=== PATIENT | male | born 1955 | race Caucasian/White ===

== ENCOUNTER 2016-11-14 15:04 | Emergency (ER) | payer OTHER ==
[~2016-11-14] VITALS: Wt 150.0 kg
[2016-11-14 17:20] LABS: ADD SCAN DIFF NO
--- NOTE | 2016-11-14 17:23 | ERA ---
ER Documentation Chief Complaint Date/Time DATE: 11/14/16 TIME: 17:19 Chief Complaint BILATERAL LOWER LEG SWELLING HPI This is a very pleasant 60-year-old male with a known history of CLL diagnosed in December 2009. 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 The patient had been placed on chemotherapy and his last dose of chemotherapy was in April 2014 which she received for 5 months. Indicates that in April 2015 he was placed on a oral chemotherapy called Ibrutanid however due to changes in his insurance he has not taken this medication since February 2016. The patient indicates that he has experienced edema of his bilateral lower extremity since his initial diagnosis of CLL in December 2015. However 2 weeks prior to arrival he stated he noticed that there appeared to be redness and warmth with associated tenderness of his bilateral lower extremities. He denies any weight loss. He has had no fever shaking or chills. He has known history of COPD and asthma and indicates he utilizes inhaler on a daily basis and does complain of mild dyspnea. He states however the dyspnea is not any different than his previous COPD exacerbations. He never required intubation in the past. He denies any chest pain or pressure that radiates to the neck arm back or jaw. He denies any shortness of breath at rest or exertion. The patient had taken a 7 day course of amoxicillin which he completed 48 hours ago for dental infection. The patient is scheduled for PET scan on November 23, 2015, next week. ROS All systems reviewed and are negative except as per history of present illness. Allergies Allergies: Coded Allergies: No Known Allergy (Unverified , 11/14/16) PMhx/Soc History of Surgery: Yes (SKIN CANCER LESIONS ) Anesthesia Reaction: No Hx Neurological Disorder: No Hx Respiratory Disorders: Yes (COPD) Hx Cardiac Disorders: No Hx Psychiatric Problems: No Hx Miscellaneous Medical Probl: Yes (CLL, ) Hx Alcohol Use: No Hx Substance Use: No Hx Tobacco Use: No Smoking Status: Former smoker Physical Exam Vitals Vital Signs Date Time Temp Pulse Resp B/P Pulse Ox O2 Delivery O2 Flow Rate FiO2 11/14/16 15:07 99.0 125 22 132/80 93 Physical Exam Constitutional:Well-developed. Well-nourished. HEENT:Normocephalic. Atraumatic.Pupils were equal round reactive to light. Moist mucous membranes.No tonsillar exudates. Neck: No nuchal rigidity. No lymphadenopathy. No posterior cervical spine tenderness or step-offs. Respiratory: Not using accessory muscles of respiration.Lungs were clear to auscultation bilaterally. No rhonchi. No rales. No wheezing. Cardiovascular: Regular rate regular rhythm.No murmurs. No rubs were appreciated.S1, S2 normal. Distal pulses are palpable 2+ bilaterally. GI: Abdomen was soft. Nontender. Non Distended. No pulsatile abdominal masses or bruits. No rebound. No guarding. Bowel sounds were present and normal. Muscle skeletal: Full range of motion of both the upper and lower extremities bilaterally.Normal muscle tone. 2+ pitting edema the bilateral lower extremities with bilateral calf tenderness and negative Homans sign Skin: No petechia, no purpura. No lesions on the palms or the soles of the feet. No maculopapular rash. Erythema extending over the distal two thirds of the anterior aspect of the bilateral lower extremities with surrounding warmth and tenderness. Pain not out of proportion to physical exam findings NEURO: Patient was alert, awake, orientated x3.No facial droop. Gait observed and normal with no ataxia.Speech had regular rate and rhythm. No focal neurological deficits. Result Diagram: 11/14/16 1705 11/14/16 1705 Results 24 hrs Laboratory Tests Test 11/14/16 17:05 11/14/16 19:40 Activated Partial Thromboplast Time 23.9Sec Alanine Aminotransferase (ALT/SGPT) 35IU/L Albumin 3.5g/dl Albumin/Globulin Ratio 1.59 Alkaline Phosphatase 92IU/L Amylase Level 69U/L Anion Gap 14 Aspartate Amino Transf (AST/SGOT) 35IU/L B-Type Natriuretic Peptide 49PG/ML Blood Urea Nitrogen 15mg/dl Calcium Level 9.8mg/dl Carbon Dioxide Level 29mmol/L Chloride Level 104mmol/L Creatinine 1.14mg/dl Direct Bilirubin 0.00mg/dl Eosinophils # 0.310^3/ul Eosinophils % 2.0% Globulin 2.20g/dl Glucose Level 118mg/dl Hematocrit 39.8% Hemoglobin 13.2g/dl INR International Normalized Ratio 1.00 Indirect Bilirubin 0.4mg/dl Lactic Acid Level 0.6mmol/L Lipase 267U/L Lymphocytes # 9.610^3/ul Lymphocytes % 62.0% Mean Corpuscular Hemoglobin 28.4pg Mean Corpuscular Hemoglobin Concent 33.2g/dl Mean Corpuscular Volume 85.6fl Mean Platelet Volume 11.2fl Monocytes # 2.010^3/ul Monocytes % 13.0% Neutrophils # 3.610^3/ul Neutrophils % 23.0% Platelet Count 12902^3/UL Potassium Level 4.0mmol/L Prothrombin Time 13.2Sec Prothrombin Time Ratio 1.0 Red Blood Count 4.6510^6/ul Red Cell Distribution Width 16.1% Sodium Level 143mmol/L Total Bilirubin 0.4mg/dl Total Protein 5.7g/dl Troponin I < 0.012ng/ml White Blood Count 15.510^3/ul Urine Bilirubin NEGATIVE Urine Clarity CLEAR Urine Color LT. YELLOW Urine Glucose NEGATIVE% Urine Hemoglobin NEGATIVE Urine Ketones TRACE Urine Leukocyte Esterase NEGATIVE Urine Nitrite NEGATIVE Urine Specific [place] 1.025 Urine Total Protein NEGATIVE Urine Urobilinogen 0.2 E.U./dL Urine pH 6.0 Current Medications Medications (Trade) Dose Ordered Sig/Isael Route PRN Reason Start Time Stop Time Status Last Admin Dose Admin Vancomycin HCl 250 ml @ 125 mls/hr ONCE STAT IVPB 11/14/16 18:45 11/14/16 20:44 Clindamycin HCl/ Dextrose (Cleocin 900 Mg/ D5W (Pmx)) 50 ml @ 50 mls/hr ONCE STAT IVPB 11/14/16 18:45 11/14/16 19:44 DC 11/14/16 19:55 Procedures/MDM The patient presented to the emergency department with a spreading erythematous superficial infection of the skin and subcutaneous tissues. My differential diagnosis included but was not limited to necrotizing fasciitis, lymphangitis, thrombophlebitis, deep vein thrombosis, allergic reaction, neoplasm, gout or abscess. Predisposing factors of the progressive spread of erythema, warmth, pain and tenderness was considered such as lymphedema, tinea pedis, open wounds, prior trauma or surgery, pre-existing skin lesion (furuncle), retained foreign body, injection drug use or vascular or immune compromise. The patient was placed on antibiotics to cover Staphylococcus aureus, including resistant strains such as community-acquired methicillin-resistant S. aureus. The patient was given intravenous vancomycin and clindamycin. I obtained a chest radiograph which showed no evidence of an infectious process such as pneumonia and no fluid overload to suggest pulmonary edema from the lower extremity peripheral edema the patient had been experiencing I obtained venous duplex ultrasound of the bilateral lower extremities which indicated no evidence of deep vein thrombosis. The patient had leukocytosis with white blood count of 15.5. 12 Lead EKG tracing ordered and reviewed by myself showed: Sinus tachycardia 112 bpm and no arrhythmia. NV interval normal. QRS duration normal. No ST segment elevation No ST segment depression. No changes consistent with acute ischemia. I explained to the patient that I felt he needed to be admitted due to his immunocompromise state and signs of bilateral lower extremity cellulitis for IV antibiotics. The patient however stated that he would prefer to be discharged home. He states he has good outpatient follow-up, as he is following up with his oncologist for a PET scan in roughly 1 week. The patient had no lactic acidosis or signs of sepsis at this time. He is refusing analgesic medication. I did provide a prescription for the patient which included clindamycin and Keflex for oral antibiotics. Again the patient was instructed that he can return to the emergency department at any time if there is worsening of his symptoms. The patient was very adamant that he did not want to be admitted to the hospital. The patient was discharged home in fair condition. They were instructed to return to the emergency department at any time if there was any worsening of their condition. The patient stated they would follow up with their PCP in the next 24-48 hours to initiate a suitable medication regimen under the care of their PCP as well as to allow their PCP to monitor any drug reactions. The patient was discharged home with prescriptions after they gave informed consent to the new medication. They were also fully informed by myself on the adverse effects and adverse drug interactions in order to provide adequate safeguards to prevent possible adverse reactions to medications. Departure Diagnosis: Primary Impression: Cellulitis Qualified Code: L03.119 - Cellulitis of lower extremity, unspecified laterality Additional Impression: Peripheral edema Condition: Fair RONI QUISPE Nov 14, 2016 17:23
[2016-11-14 17:25] LABS: ABNORMAL IP MESSAGE 1; HEMATOCRIT 39.8 % (42.0-52.0); HEMOGLOBIN 13.2 g/dl (14.0-18.0); MEAN CORPUSCULAR HEMOGLOBIN 28.4 pg (29.0-33.0); MEAN CORPUSCULAR HGB CONC 33.2 g/dl (32.0-37.0); MEAN CORPUSCULAR VOLUME 85.6 fl (82.0-101.0); MEAN PLATELET VOLUME 11.2 fl (7.4-10.4); PLATELET COUNT 117 10^3/UL (140-415); RED BLOOD COUNT 4.65 10^6/ul (4.70-6.10); RED CELL DISTRIBUTION WIDTH 16.1 % (11.5-14.5); WHITE BLOOD COUNT 15.5 10^3/ul (4.8-10.8)
[2016-11-14 17:35] LABS: PARTIAL THROMBOPLASTIN TIME 23.9 Sec (25.0-35.0); PROTIME 13.2 Sec (12.2-14.2)
[2016-11-14 17:38] LABS: ALBUMIN 3.5 g/dl (3.3-4.9)
[2016-11-14 17:40] LABS: CREATININE 1.14 mg/dl (0.61-1.24)
[2016-11-14 17:41] LABS: ALBUMIN/GLOBULIN RATIO 1.59; AMYLASE 69 U/L (11-123); BILIRUBIN,INDIRECT 0.4 mg/dl (0-1.1); BILIRUBIN,TOTAL 0.4 mg/dl (0.2-1.3); CALCIUM 9.8 mg/dl (8.4-10.2); TOTAL PROTEIN 5.7 g/dl (6.1-8.1)
[2016-11-14 17:52] LABS: EOSINOPHILS # 0.3 10^3/ul (0.0-0.5); LYMPHOCYTES # 9.6 10^3/ul (0.8-2.9); NEUTROPHIL # 3.6 10^3/ul (1.6-7.5)
[2016-11-14 18:15] LABS: TROPONIN-I < 0.012 ng/ml (0.00-0.12)
--- NOTE | 2016-11-14 18:15 | RADRPT ---
PROCEDURE: US Lower extremity Venous. CLINICAL INDICATION: Patient experiencing Chest Pain TECHNIQUE: Multiple sonographic images of the bilateral lower extremity deep venous system was obt ained utilizing grayscale, color-flow, compressive sonography and doppler imaging with augmentation. The images were reviewed on a PACS workstation. COMPARISON: None. FINDINGS: There is normal compressibility and flow within the bilateral common femoral, deep femoral, superfic ial femoral and popliteal veins. The deep veins the calf were incompletely visualized. Prominent bilateral inguinal lymph nodes are present. IMPRESSION: No sonographic evidence for deep venous thrombosis in the bilateral lower extremities. Prominent bilateral inguinal lymph nodes are present. Physician Marleny Date Time Electronically viewed and signed by Physician Marleny on 11/14/2016 18:15 ML/
[2016-11-14] MEDS ORDERED: CLINDAMYCIN 900 MG/D5W (PMX) 50 ML IVPB STA (18:45)
[2016-11-14] MEDS ORDERED: VANCOMYCIN 1 GM (PMX) 250 ML IVPB STA (18:45)
--- NOTE | 2016-11-14 18:49 | RADRPT ---
PROCEDURE: Chest x-ray CLINICAL INDICATION: Chest pain TECHNIQUE: Chest single view COMPARISON: None FINDINGS: The heart is normal in size. The pulmonary vessels are normal in caliber. The lungs are clear. Th e costophrenic angles are sharp. The visualized bony thorax is unremarkable. IMPRESSION: No acute cardiopulmonary disease. RPTAT: HH .Gregory Booige MD, Date Time Electronically viewed and signed by .Gregory Boogie MD, MD on 11/14/2016 18:49 .W/
[2016-11-14 19:48] LABS: ADD UMIC NO; URINE BILIRUBIN (Dip) NEGATIVE (NEGATIVE); URINE BLOOD (Dip) NEGATIVE (NEGATIVE); URINE COLOR LT. YELLOW (YELLOW); URINE GLUCOSE (Dip) NEGATIVE (NEGATIVE); URINE KETONES (Dip) TRACE (NEGATIVE); URINE LEUKOCYTE ESTERASE (Dip) NEGATIVE (NEGATIVE); URINE NITRITE (Dip) NEGATIVE (NEGATIVE); URINE TOTAL PROTEIN (Dip) NEGATIVE (NEGATIVE); URINE UROBILINOGEN (Dip) 0.2 E.U./dL (0.1-1.0)
[2016-11-14] MEDS ORDERED: CLIN-73 PO (20:18)
[2016-11-14] MEDS ORDERED: CEPH-443 PO (20:18)
[2016-11-14 23:10] VITALS: BP 117/74; PULSE 110; RESP 18; TEMP 99
== END 2016-11-14 23:14 | disposition home or self-care (01) ==
LOC: FTE 15:04
DX: L03.119 Cellulitis of unspecified part of limb (principal); R60.0 Localized edema; J44.9 Chronic obstructive pulmonary disease, unspecified; R07.9 Chest pain, unspecified; Z87.891 Personal history of nicotine dependence; Z85.828 Personal history of other malignant neoplasm of skin
CPT/HCPCS: 36415; 71010; 80053; 81003; 82150; 83605; 83690; 83880; 84484; 85025; 85610; 85730; 87040; 87086; 93005; 93970; 96374; 96375; 99285; J3370

== ENCOUNTER 2017-05-20 10:49 | Emergency (ER) | payer OTHER ==
[~2017-05-20] VITALS: Ht 182.9 cm; Wt 120.5 kg
[~2017-05-20 10:49] MED LIST: CEPH-443 PO; CLIN-73 PO
[2017-05-20 10:52] VITALS: Ht 182.9 cm; Wt 120.5 kg
[2017-05-20] MEDS ORDERED: ONDANSETRON (ODT) 4 MG TAB ODT STA (11:06)
--- NOTE | 2017-05-20 11:14 | ERD ---
ER Documentation Chief Complaint Date/Time DATE: 05/20/17 TIME: 11:12 Chief Complaint left shoulder pain after a fall HPI 61-year-old male, history of CLL, presents status post trip and fall that occurred just prior to arrival over a garden hose landing on his left shoulder complaining of diffuse achy, severe pain. Patient states that his toe had gotten caught on the guarding notes, causing to land forward onto his shoulder. He complains of achy pain in the glenohumeral area. Patient states that his pain is better when he keeps his arm against his chest, worse with any movement. ROS All systems reviewed and are negative except as per history of present illness. Medications Home Meds Active Scripts Ibuprofen* (Motrin*) 600 Mg Tab, 600 MG PO Q6, #30 TAB Prov:MEGHA MONTE PA-C 05/20/17 Hydrocodone/Acetaminophen ([place] 10-325 Tablet) 1 Each Tablet, 1 TAB PO Q6H Y for PAIN, #20 TAB Prov:MEGHA MONTE PA-C 05/20/17 Cephalexin* (Keflex*) 500 Mg Capsule, 500 MG PO QID for 10 Days, CAP Prov:RONI QUISPE 11/14/16 Clindamycin Hcl* (Clindamycin Hcl*) 300 Mg Capsule, 300 MG PO TID for 10 Days, CAP Prov:RONI QUISPE 11/14/16 Allergies Allergies: Coded Allergies: No Known Allergy (Unverified , 11/14/16) PMhx/Soc History of Surgery: Yes (SKIN CANCER LESIONS ) Anesthesia Reaction: No Hx Neurological Disorder: No Hx Respiratory Disorders: Yes (COPD) Hx Cardiac Disorders: No Hx Psychiatric Problems: No Hx Miscellaneous Medical Probl: Yes (CLL, ) Hx Alcohol Use: No Hx Substance Use: No Hx Tobacco Use: No Physical Exam Vitals Vital Signs Date Time Temp Pulse Resp B/P Pulse Ox O2 Delivery O2 Flow Rate FiO2 05/20/17 10:52 98.1 99 18 142/82 99 Physical Exam General: Well-developed, well-nourished. The patient appears in no acute distress. HEENT: Head is normocephalic, atraumatic. No scleral icterus. Neck: Supple. Nontender. Lungs: Clear to auscultation. Normal air movement. Heart: Regular rate and rhythm. S1 and S2 are normal. No murmurs, gallops, or rubs. Abdomen: Nondistended. Extremities: No bony deformities to the left shoulder, there is tenderness to palpation in the anterior glenohumeral region. Pain is reproduced with abduction. Patient is distally neurovascularly intact. Neurologic: Alert and oriented 3. No focal deficits. Normal speech and gait. Skin: Normal turgor. No rash or lesions. Results 24 hrs Current Medications Medications (Trade) Dose Ordered Sig/Isael Route PRN Reason Start Time Stop Time Status Last Admin Dose Admin Morphine Sulfate (morphine) 4 mg ONCE ONCE IM 05/20/17 11:30 05/20/17 11:31 DC 05/20/17 11:16 Ondansetron HCl (Zofran Odt) 4 mg ONCE STAT ODT 05/20/17 11:06 05/20/17 11:07 DC 05/20/17 11:16 Acetaminophen/ Hydrocodone Bitart ([place] ()) 1 tab ONCE ONCE PO 05/20/17 13:00 05/20/17 13:01 DIAGNOSTIC IMAGING REPORT Patient: JULIO BROWN : 1955 Age: 61 Sex: M MR #: [id number] DOS: 05/20/17 1106 Ordering MD: MEGHA MONTE PA-C Location: [facility] Room/Bed: PROCEDURE: XR Left Shoulder CLINICAL INDICATION: Fall TECHNIQUE: AP internal and external rotation views and a Y-view were submitted. COMPARISON: None FINDINGS: Osseous structures: There is a fracture through the lateral left humeral head with the lateral fragment displaced laterally by 3 mm. The remaining osseous elements appear rarefied but intact. Joint spaces: The glenohumeral joint appears unremarkable. The left AC joint appears unremarkable. Soft tissues: Punctate calcifications are seen about the glenoid. IMPRESSION: 1. Fracture seen through the lateral left humeral head. 2. Osteopenia. 3. Punctate calcifications are seen about the glenoid. Physician Jessy Date Time Electronically viewed and signed by Physician Jessy on 05/20/2017 12:09 RH/ CC: MEGHA MONTE PA-C Procedures/MDM ED course: Patient's left shoulder was placed in a sling. and a shoulder immobilizer. Splint Assessment: Neurovascularly intact post splint placement with good fit. For pain received morphine 4 mg IM, Zofran 4 mg ODT. MDM: 61-year-old male presents status post mechanical fall, he landed on his left shoulder and is complaining of left shoulder pain, Has evidence of a proximal humerus fracture. This is an acute closed fracture and He is neurovascularly intact. Patient was given a copy of x-rays, as well as with this. Was asked to follow-up with orthopedics early this week. Patient's blood pressure was elevated (>120/80) but appears stable without evidence of hypertension emergency or urgency. The patient was counseled about the risks of hypertension and urged to pursue outpatient monitoring and therapy within a week with their primary care physician. Departure Diagnosis: Primary Impression: Shoulder fracture Condition: Good MEGHA MONTE PA-C May 20, 2017 11:14
[2017-05-20] MEDS ORDERED: morphine 10 MG INJ IM ONE (11:30)
--- NOTE | 2017-05-20 12:09 | RADRPT ---
PROCEDURE: XR Left Shoulder CLINICAL INDICATION: Fall TECHNIQUE: AP internal and external rotation views and a Y-view were submitted. COMPARISON: None FINDINGS: Osseous structures: There is a fracture through the lateral left humeral head with the lateral fragm ent displaced laterally by 3 mm. The remaining osseous elements appear rarefied but intact. Joint spaces: The glenohumeral joint appears unremarkable. The left AC joint appears unremarkable. Soft tissues: Punctate calcifications are seen about the glenoid. IMPRESSION: 1. Fracture seen through the lateral left humeral head. 2. Osteopenia. 3. Punctate calcifications are seen about the glenoid. Physician Jessy Date Time Electronically viewed and signed by Physician Jessy on 05/20/2017 12:09 /
[2017-05-20] MEDS ORDERED: HYDR-902 PO (12:31)
[2017-05-20] MEDS ORDERED: IBUP-1542 PO (12:31)
[2017-05-20] MEDS ORDERED: HYDROCODONE/APAP (10/325) TAB PO ONE (13:00)
== END 2017-05-20 13:11 | disposition home or self-care (01) ==
LOC: FTE 10:49
DX: S42.201A Unspecified fracture of upper end of right humerus, initial encounter for closed fracture (principal); J44.9 Chronic obstructive pulmonary disease, unspecified; W01.0XXA Fall on same level from slipping, tripping and stumbling without subsequent striking against object, initial encounter; Z85.828 Personal history of other malignant neoplasm of skin
CPT/HCPCS: 29105; 73030; 96372; 99284; J2270

== ENCOUNTER 2017-12-01 12:54 | Inpatient (IN) | END 2017-12-02 19:34 | disposition home or self-care (01) | DRG 809 ==